=== PATIENT | female | born 1935 | race Caucasian/White ===

== ENCOUNTER 2021-02-09 15:27 | Outpatient (CLI) | payer MEDICARE, OTHER ==
--- NOTE | 2021-02-09 17:52 | DEXA Report ---
PROCEDURE: Dexa Spine and/or Hip INDICATIONS: OSTEOPENIA TECHNIQUE: Dual energy x-ray absorptiometry (DXA) was performed on a [employer] System. Regions measur ed are the AP Spine, femoral neck, and if needed forearm. COMPARISON: None. FINDINGS: Lumbar Spine: Bone Mineral Density 1.173 g/cm/cm,T score 0.1, normal Left Hip: Bone Mineral Density 1.002 g/cm/cm,T score 0.0, normal Left Femoral Neck: Bone Mineral Density 0.831 g/cm/cm, T score -1.5, osteopenia (T score greater or equal to -1.0: NORMAL) (T score from -1.1 to -2.4: OSTEOPENIA) (T score less than or equal to -2.5 to: OSTEOPOROSIS) Impression: Osteopenia. Patients with diagnosis of osteoporosis or osteopenia should have regular bone mineral density assess ment. For those eligible for Medicare, routine testing is allowed once every 2 years. Testing frequ ency can be increased for patients who have rapidly progressing disease or for those who are receivin g medical therapy to restore bone mass. Reviewed by: Nelly Garland MD, PhD on 02/09/2021 5:51 PM PDT Approved by: Nelly Garland MD, PhD on 02/09/2021 5:51 PM PDT Station ID: [id number]
== END 2021-02-09 15:28 | disposition home or self-care (01) ==
LOC: DI 15:27
PROVIDERS: ATTEND Internal Medicine
DX: M85.88 Other specified disorders of bone density and structure, other site (principal)

== ENCOUNTER 2022-10-18 08:00 | Outpatient (CLI) | payer OTHER ==
[2022-10-18 16:09] LABS: BILIRUBIN,URINE NEGATIVE (NEGATIVE); GLUCOSE, URINE (UA) NEGATIVE (NEGATIVE); KETONES,URINE (UA) NEGATIVE (NEGATIVE); LEUKOCYTE ESTERASE, URINE NEGATIVE (NEGATIVE); NITRITE,URINE NEGATIVE (NEGATIVE); OCCULT BLOOD,URINE NEGATIVE (NEGATIVE); PROTEIN,URINE NEGATIVE (NEGATIVE); UROBILINOGEN,URINE 0.2 (NORMAL) E.U./dL (NORMAL)
[2022-10-18 16:22] LABS: CLARITY,URINE CLEAR (CLEAR)
[2022-10-18 16:35] LABS: BACTERIA,URINE Rare /HPF (None Seen); RBC,URINE 0-5 /HPF (0-5); SQUAMOUS EPITHELIAL CELL,UR FEW Squamous (<= Few); WBC,URINE 0-3 /HPF (0-5)
== END 2022-10-18 23:59 | disposition home or self-care (01) ==
LOC: LAB.R 08:00
PROVIDERS: ATTEND Internal Medicine
DX: R32 Unspecified urinary incontinence (principal)
CPT/HCPCS: 81001; 87086

== ENCOUNTER 2023-10-21 23:16 | Outpatient (CLI) | payer MEDICARE | END 2023-10-21 23:59 | disposition left against medical advice (07) | LOC: EMS 23:16 | DX: I10 Essential (primary) hypertension (principal); R51.9 Headache, unspecified; R42 Dizziness and giddiness ==

== ENCOUNTER 2023-10-22 17:14 | Outpatient (CLI) | payer MEDICARE ==
--- NOTE | 2023-10-22 18:16 | CT Report ---
PROCEDURE: Head WO INDICATIONS: PARALYSIS OF LOWER EXTREMITY TECHNIQUE: Noncontrast 4.5 mm thick angled axial sections acquired from the foramen magnum to the vertex. For r adiation dose reduction, the following was used: automated exposure control, adjustment of mA and/or kV according to patient size. COMPARISON: None. FINDINGS: Image quality: Excellent. CSF spaces: Basal cisterns are patent. No extra-axial fluid collections. Ventricles are normal in size and shape. Brain: No midline shift. No intracranial masses or hemorrhage. Chna-white matter interface is norm al. Skull and face: Calvarium and visualized facial bones are intact, without suspicious lesions. Sinuses: Visualized sinuses and mastoids are clear. IMPRESSION: No acute intracranial pathology. Reviewed by: Latrell Brewster MD on 10/22/2023 6:15 PM PST Approved by: Latrell Brewster MD on 10/22/2023 6:15 PM [facility] Station ID: [id number]
== END 2023-10-22 17:15 | disposition home or self-care (01) ==
LOC: DI 17:14
PROVIDERS: ATTEND Internal Medicine
DX: G83.10 Monoplegia of lower limb affecting unspecified side (principal)

== ENCOUNTER 2023-12-31 10:47 | Outpatient (CLI) | payer MEDICARE ==
--- NOTE | 2023-12-31 13:00 | XRAY Report ---
PROCEDURE: Knee 3V LT INDICATIONS: LEFT KNEE PAIN TECHNIQUE: 3 views of the knee were acquired. COMPARISON: Knee radiographs 06/07/2016. FINDINGS: Bones: No acute fractures or dislocations. No suspicious bony lesions. Mild joint space narrowing is seen at the medial femorotibial compartment. Lateral and anterior compartment joint spaces are ma intained. Soft tissues: No knee joint effusion. No suspicious soft tissue calcifications or masses. IMPRESSION: Mild medial femorotibial compartment osteoarthrosis. Reviewed by: Efraín Liriano MD on 12/31/2023 12:59 PM PDT Approved by: Efraín Liriano MD on 12/31/2023 12:59 PM PDT Station ID: [id number]
== END 2023-12-31 10:48 | disposition home or self-care (01) ==
LOC: DI 10:47
PROVIDERS: ATTEND Internal Medicine
DX: M62.452 Contracture of muscle, left thigh (principal); M17.12 Unilateral primary osteoarthritis, left knee

== ENCOUNTER 2024-01-11 15:11 | Outpatient (CLI) | payer MEDICARE ==
--- NOTE | 2024-01-11 23:30 | XRAY Report ---
PROCEDURE: Hip w/Pelvis 2-3V LT INDICATIONS: PAIN IN LEFT HIP TECHNIQUE: 2 views of the hip were acquired. COMPARISON: None. FINDINGS: Bones: No fractures or dislocations. Mild bilateral hip DJD. No suspicious bony lesions. Soft tissues: No suspicious soft tissue calcifications or masses. IMPRESSION: Mild bilateral hip DJD. Reviewed by: Eladio Ruiz MD on 01/11/2024 11:29 PM PDT Approved by: Eladio Ruiz MD on 01/11/2024 11:29 PM PDT Station ID: [id number]
== END 2024-01-11 15:12 | disposition home or self-care (01) ==
LOC: DI.N 15:11
PROVIDERS: ATTEND Internal Medicine
DX: M16.0 Bilateral primary osteoarthritis of hip (principal)

== ENCOUNTER 2024-05-01 13:20 | Outpatient (CLI) | payer MEDICARE ==
--- NOTE | 2024-05-01 14:52 | DEXA Report ---
PROCEDURE: Dexa Spine and/or Hip INDICATIONS: POST MENOPAUSAL TECHNIQUE: Dual energy x-ray absorptiometry (DXA) was performed on a [employer] System. Regions measur ed are the AP Spine, femoral neck, and if needed forearm. COMPARISON: 02/01/2021 FINDINGS: Lumbar Spine: Bone Mineral Density: 1.351 g/cm/cm,T score: 1.4. Statistically significant increase compared to lucie or. Left Femoral Neck: Bone Mineral Density: 0.811 g/cm/cm, T score: -1.6. Left Hip: Bone Mineral Density: 0.967 g/cm/cm,T score: -0.3. Since the most recent prior study, there has been a statistically significant decrease in bone mineral density by 3.5 percent. (T score greater or equal to -1.0: NORMAL) (T score from -1.1 to -2.4: OSTEOPENIA) (T score less than or equal to -2.5 to: OSTEOPOROSIS) Impression: By WHO criteria, this patient has low bone density (osteopenia). Interval statistical increase in bone mineral density of the lumbar spine. Interval statistical decre ase in bone mineral density of the hip. Patients with diagnosis of osteoporosis or osteopenia should have regular bone mineral density assess ment. For those eligible for Medicare, routine testing is allowed once every 2 years. Testing frequ ency can be increased for patients who have rapidly progressing disease or for those who are receivin g medical therapy to restore bone mass. Reviewed by: Yonis Rodriguez MD on 05/01/2024 2:51 PM PDT Approved by: Yonis Rodriguez MD on 05/01/2024 2:51 PM PDT Station ID: [id number]
== END 2024-05-01 13:21 | disposition home or self-care (01) ==
LOC: DI 13:20
PROVIDERS: ATTEND Internal Medicine
DX: M85.88 Other specified disorders of bone density and structure, other site (principal); Z78.0 Asymptomatic menopausal state